=== PATIENT | male | born 1985 | race Caucasian/White ===

== ENCOUNTER 2017-05-15 08:21 | Emergency (ER) | payer SELFPAY ==
[~2017-05-15 08:21] MED LIST: Donnatal Elixir 16.2 MG/5 ML UDCUP ONE
[2017-05-15 08:43] LABS: #Basophils 0.1 thou/uL (0.0-0.2); #Eosinphils 0.2 thou/uL (0.0-0.7); #Lymphocytes 2.8 thou/uL (1.20-3.40); #Monocytes 0.6 thou/uL (0.11-0.59); %Basophils 1.1 % (0.0-1.0); %Eosinophils 2.4 % (0.0-10.0); %Lymphocytes 42.4 % (21.0-51.0); %Monocytes 8.8 % (0.0-10.0); %Neutrophils 45.3 % (42.0-75.0); Hemoglobin 16.4 g/dL (14.0-18.0); Mean Corpuscular HGB CONC 34.8 g/dL (32.0-36.0); Mean Corpuscular Hemoglobin 31.8 pg (27.0-31.0); Mean Corpuscular Volume 91.4 fl (80.0-94.0); Mean Platelet Volume 10.3 fL (7.4-10.4); Platelet Count 225 thou/uL (130-400); RBC Distribution Width 11.6 % (11.5-14.5); Red Blood Cell (RBC) Count 5.16 mill/uL (4.70-6.10); White Blood Cell (WBC) Count 6.6 thou/uL (4.8-10.8)
[2017-05-15] MEDS ORDERED: Nitroglycerin 0.4 MG TAB 1 EACH ONE (08:49)
[2017-05-15] MEDS ORDERED: Aspirin 325 MG TAB ONE (08:49)
[2017-05-15 08:50] LABS: PTT 26.6 SEC (22.9-36.1); Prothrombin Time 13.3 SEC (12.0-14.7)
[2017-05-15] MEDS ORDERED: Ketorolac Tromethamine 30 MG/ML VIAL ONE (09:01)
[2017-05-15 09:02] LABS: ALT (SGPT) 26 U/L (8-55); AST (SGOT) 21 U/L (5-34); Albumin 4.7 g/dL (3.5-5.0); Alkaline Phosphatase 60 U/L (40-150); Anion Gap 17 mmol/L (10-20); BUN (Urea Nitrogen) 26 mg/dL (8.9-20.6); Bilirubin, Total 0.4 mg/dL (0.2-1.2); CK (CPK) 203 U/L (30-200); Calc. Creatinine Clearance 0 mL/min (70-130); Calcium 9.7 mg/dL (7.8-10.44); Carbon Dioxide 23 mmol/L (22-29); Chloride 102 mmol/L (98-107); Estimated GFR-MDRD Greater than 90; Glucose 75 mg/dL (70-105); Magnesium 2.6 mg/dL (1.6-2.6); Potassium 4.7 mmol/L (3.5-5.1); Protein, Total 7.7 g/dL (6.0-8.3); Sodium 137 mmol/L (136-145)
[2017-05-15] MEDS ORDERED: Lidocaine Viscous Sol 2% 15 ml UD Cup ONE (09:02)
[2017-05-15] MEDS ORDERED: Mag-Al Plus 1200 MG/1200 MG/120 MG/30 ML UDCUP ONE (09:02)
[2017-05-15] MEDS ORDERED: Donnatal Elixir 16.2 MG/5 ML UDCUP ONE (09:02)
[2017-05-15 09:03] LABS: CKMB 1.6 ng/mL (0-6.6); Troponin I Less than 0.010 ng/mL (< 0.028)
--- NOTE | 2017-05-15 09:27 | RAD ---
AP CHEST: History: Chest pain. FINDINGS: The lungs are well aerated. No evidence of active intrathoracic disease is seen. No evidence of effu sions, pneumonia, or pneumothorax seen. IMPRESSION: Unremarkable AP chest. POS: [facility]
== END 2017-05-15 11:05 | disposition home or self-care (01) ==
LOC: MADERS 08:21
DX: K21.9 Gastro-esophageal reflux disease without esophagitis (principal); F31.9 Bipolar disorder, unspecified; Z87.891 Personal history of nicotine dependence
CPT/HCPCS: 71010; 80053; 82553; 83735; 83880; 84484; 85025; 85610; 85730; 93005; 94760; 96374; J1885

== ENCOUNTER 2017-07-04 18:41 | Emergency (ER) | payer SELFPAY ==
--- NOTE | 2017-07-04 19:33 | RAD ---
RIGHT ELBOW FOUR VIEW 07/04/17 HISTORY: Joint pain. COMPARISON: None. FINDINGS: No acute fracture or malalignment. No significant joint effusion. IMPRESSION: No acute fracture or malalignment. POS: [facility]
== END 2017-07-04 20:05 | disposition home or self-care (01) ==
LOC: MADERS 18:41
DX: M77.11 Lateral epicondylitis, right elbow (principal); F31.9 Bipolar disorder, unspecified; Z87.891 Personal history of nicotine dependence

== ENCOUNTER 2017-08-22 06:43 | Emergency (ER) | payer SELFPAY ==
[2017-08-22] MEDS ORDERED: Tetracaine 0.5% OPHTH SOLN/PF 4 ML BOT ONE (07:29)
[2017-08-22] MEDS ORDERED: Adacel (T-DAP) 0.5 ML VIAL ONE (07:54)
[2017-08-22] MEDS ORDERED: Proparacaine 0.5% Opth 15 ML BOT ONE (08:08)
== END 2017-08-22 08:05 | disposition home or self-care (01) ==
LOC: MADERS 06:43
DX: S05.02XA Injury of conjunctiva and corneal abrasion without foreign body, left eye, initial encounter (principal); F31.9 Bipolar disorder, unspecified; Z87.891 Personal history of nicotine dependence
CPT/HCPCS: 90471; 90715

== ENCOUNTER 2017-09-15 11:41 | Emergency (ER) | payer SELFPAY ==
[2017-09-15] MEDS ORDERED: Aspirin 325 MG TAB ONE (12:01)
[2017-09-15 12:20] LABS: #Eosinphils 0.2 thou/uL (0.0-0.7); #Lymphocytes 2.5 thou/uL (1.20-3.40); #Monocytes 0.6 thou/uL (0.11-0.59); #Neutrophils 3.1 thou/uL (1.40-6.50); %Basophils 0.7 % (0.0-1.0); %Eosinophils 3.3 % (0.0-10.0); %Lymphocytes 38.3 % (21.0-51.0); %Monocytes 9.6 % (0.0-10.0); %Neutrophils 48.2 % (42.0-75.0); Hemoglobin 15.4 g/dL (14.0-18.0); Mean Corpuscular HGB CONC 34.8 g/dL (32.0-36.0); Mean Corpuscular Hemoglobin 31.5 pg (27.0-31.0); Mean Corpuscular Volume 90.5 fl (80.0-94.0); Mean Platelet Volume 9.4 fL (7.4-10.4); Platelet Count 209 thou/uL (130-400); RBC Distribution Width 10.7 % (11.5-14.5); Red Blood Cell (RBC) Count 4.88 mill/uL (4.70-6.10); White Blood Cell (WBC) Count 6.5 thou/uL (4.8-10.8)
[2017-09-15 12:29] LABS: PTT 24.9 SEC (22.9-36.1); Prothrombin Time 13.6 SEC (12.0-14.7)
[2017-09-15 12:40] LABS: ALT (SGPT) 23 U/L (8-55); AST (SGOT) 18 U/L (5-34); Albumin 4.3 g/dL (3.5-5.0); Alkaline Phosphatase 63 U/L (40-150); Anion Gap 11 mmol/L (10-20); BUN (Urea Nitrogen) 21 mg/dL (8.9-20.6); Bilirubin, Total 0.7 mg/dL (0.2-1.2); CK (CPK) 129 U/L (30-200); Calc. Creatinine Clearance 0 mL/min (70-130); Calcium 9.4 mg/dL (7.8-10.44); Carbon Dioxide 26 mmol/L (22-29); Chloride 105 mmol/L (98-107); Estimated GFR-MDRD Greater than 90; Globulin 2.8 g/dL (2.4-3.5); Glucose 87 mg/dL (70-105); Potassium 4.2 mmol/L (3.5-5.1); Protein, Total 7.1 g/dL (6.0-8.3); Sodium 138 mmol/L (136-145)
--- NOTE | 2017-09-15 12:40 | RAD ---
FRONTAL RADIOGRAPH OF CHEST: Date: 09/15/17 COMPARISON: 05/15/17. HISTORY: Chest pain. FINDINGS: No pneumothorax, pleural fluid, focal consolidation, or alveolar edema. Heart and mediastinal contou rs are grossly unremarkable. IMPRESSION: No acute findings. POS: [facility]
[2017-09-15 13:12] LABS: CKMB 1.6 ng/mL (0-6.6); Troponin I Less than 0.010 ng/mL (< 0.028)
== END 2017-09-15 13:38 | disposition home or self-care (01) ==
LOC: MADERS 11:41
DX: R07.2 Precordial pain (principal); K21.9 Gastro-esophageal reflux disease without esophagitis; F31.9 Bipolar disorder, unspecified; Z87.891 Personal history of nicotine dependence
CPT/HCPCS: 71010; 80053; 82553; 83880; 84484; 85025; 85610; 85730; 93005; 94760

== ENCOUNTER 2018-02-15 10:38 | Emergency (ER) | payer SELFPAY ==
--- NOTE | 2018-02-15 15:24 | RAD ---
THREE VIEWS RIGHT SHOULDER: HISTORY: Right shoulder pain after trauma. FINDINGS: AP internally, externally, and scapula-Y views right shoulder are obtained. No evidence of right shoulder fractures, subluxations, or bony lesions seen. IMPRESSION: Normal 33 views right shoulder. POS: [facility]
--- NOTE | 2018-02-15 15:28 | RAD ---
CERVICAL SPINE 3 VIEWS: HISTORY: A 32-year-old male with a history of right neck pain. FINDINGS: No evidence for acute fracture or dislocation. The tip of the odontoid and portions of C1 are obscur ed on the AP open mouth view. No prevertebral soft tissue swelling. No significant malalignment. IMPRESSION: No significant abnormality involving the visualized C-spine. POS: [facility]
--- NOTE | 2018-02-15 15:38 | RAD ---
FOUR VIEWS RIGHT ELBOW: HISTORY: Right elbow strain. FINDINGS: Four views right elbow demonstrate no evidence of right elbow fractures, subluxations, or bony lesion s. IMPRESSION: Normal 4 views right elbow. POS: [facility]
== END 2018-02-15 12:20 | disposition home or self-care (01) ==
LOC: MADERS 10:38
DX: M77.01 Medial epicondylitis, right elbow (principal); M62.838 Other muscle spasm; K21.9 Gastro-esophageal reflux disease without esophagitis; F31.9 Bipolar disorder, unspecified; Z87.891 Personal history of nicotine dependence
CPT/HCPCS: 72040